=== PATIENT | female | born 1965 | race Caucasian/White ===

== ENCOUNTER → 2019-06-26 14:26 | Outpatient (CLI) | payer OTHER, SELFPAY ==
--- NOTE | 2019-06-26 14:33 | RAD_ITS ---
STUDY: X-RAY - LEFT HAND REASON FOR EXAM: Female, 53 years old. Pain TECHNIQUE: 3 view(s) of the hand. COMPARISON: None. FINDINGS: Normal radiocarpal articulation. Normal distal radioulnar joint. Normal visualized carpal bones. Normal carpal articulations Normal carpometacarpal articulation of the thumb. Normal second through fifth carpometacarpal joints. Normal metacarpi. Normal metacarpophalangeal joint of the thumb. Normal interphalangeal joint of the thumb. Normal proximal and distal phalanges of the thumb. Normal metacarpophalangeal joints of the second through fifth fingers. Normal proximal and distal interphalangeal joints of the second through fifth fingers. Normal phalanges of the second through fifth fingers. The soft tissue structures are unremarkable. RAD/Hand Min 3 Views IMPRESSION: Normal x-ray examination of the hand. Electronically Signed: Tavon Lorenz DO at 23:58 EDT Tel [phone], Service support ,
--- NOTE | 2019-06-26 14:39 | RAD_ITS ---
STUDY: X-RAY - RIGHT HAND REASON FOR EXAM: Female, 53 years old. Pain TECHNIQUE: 3 view(s) of the hand. COMPARISON: None. FINDINGS: Normal radiocarpal articulation. Normal distal radioulnar joint. Normal visualized carpal bones. Normal carpal articulations Normal carpometacarpal articulation of the thumb. Normal second through fifth carpometacarpal joints. Normal metacarpi. Normal metacarpophalangeal joint of the thumb. Normal interphalangeal joint of the thumb. Normal proximal and distal phalanges of the thumb. Normal metacarpophalangeal joints of the second through fifth fingers. Normal proximal and distal interphalangeal joints of the second through fifth fingers. Normal phalanges of the second through fifth fingers. The soft tissue structures are unremarkable. RAD/Hand Min 3 Views IMPRESSION: Normal x-ray examination of the hand. Electronically Signed: Tavon Lorenz DO at 0:00 EDT Tel [phone], Service support ,
== END ==
PROVIDERS: Family Provider Family Medicine; PCP Family Medicine; Referring Provider Family Medicine; Visit Provider Family Medicine
DX: M79.641 Pain in right hand (principal); M79.642 Pain in left hand
CPT/HCPCS: 73130

== ENCOUNTER → 2019-10-06 12:18 | Outpatient (CLI) | payer OTHER, SELFPAY ==
[2019-07-27 08:13] VITALS: BMI 27.4
--- NOTE | 2019-10-06 12:20 | US_ITS ---
STUDY: RENAL ULTRASOUND - COMPLETE REASON FOR EXAM: Female, 54 years old. Pyelonephritis TECHNIQUE: Ultrasound evaluation of the kidneys was performed with real-time and static xavier-scale imaging. COMPARISON: None. FINDINGS: RIGHT KIDNEY: Normal location of the right kidney, which is normal in size. The right kidney measures 11.8 x 3.9 x 3.9 cm. There is a normal cortex of the right kidney. The renal cortex measures 1.3 cm. There is no right renal mass or cyst. Punctate echogenicity within the right kidney. There is no right hydronephrosis. DISTAL RIGHT URETER: There is non-visualization of the distal right ureter. There is no demonstrated right ureterovesical junction calculus. There is no demonstrated right ureteral jet. LEFT KIDNEY: Normal location of the left kidney, which is normal in size. The left kidney measures 11.1 x 4.7 x 6.3 cm. There is a normal cortex of the left kidney. The renal cortex measures 1.4 cm. There is no left renal mass or cyst. There is punctate echogenicity within the left kidney. There is no left hydronephrosis. DISTAL LEFT URETER: There is non-visualization of the distal left ureter. There is no demonstrated left ureterovesical junction calculus. There is a visualized left ureteral jet. BLADDER: The there is a lobulated appearance of the prevoid bladder with wall thickening measuring up to 9.5 mm. US/Kidney and Bladder IMPRESSION: The bladder volume is approximately 73 mL with wall thickening suspicious for cystitis. There is no evidence of hydronephrosis. No evidence of hydronephrosis Suspect punctate stones bilateral kidneys. Electronically Signed: Geno Tee MD at 17:32 EST Tel , Service support ,
== END ==
PROVIDERS: Family Provider Family Medicine; PCP Family Medicine; Referring Provider Family Medicine; Visit Provider Family Medicine
DX: N10 Acute pyelonephritis (principal)
CPT/HCPCS: 76770

== ENCOUNTER → 2023-10-25 | Outpatient (CLI) | payer OTHER, SELFPAY ==
--- NOTE | 2023-10-25 15:14 | US_ITS ---
STUDY: Left ULTRASOUND REASON FOR EXAM: Female, 58 years old. LYMPH NODE ENLARGEMENT TECHNIQUE: Ultrasound evaluation of the left neck was performed with real-time and static dodge-scale imaging. Views of the right were obtained for comparison purposes COMPARISON: None. FINDINGS: Examination of the left neck demonstrates a 1.4 x 1.3 x 1.1 cm complex appearing nodule without internal blood flow at the site of the clinically palpable nodule. There is a similar-appearing but smaller nodule measuring 8 x 7 mm on the right. These may represent periparotid nodes or perhaps small bilateral. Intraparotid nodes or other nodules. CT recommended for further evaluation US/Head/Neck Soft Tissue IMPRESSION: Complex nodule in the left lateral neck of indeterminate etiology and smaller lesion on the right.. CT with contrast recommended for further evaluation. Electronically Signed: Quintin Dhillon MD at 17:31 EST ,
== END | disposition home or self-care (01) ==
LOC: US 15:12
PROVIDERS: PCP Family Medicine; Referring Provider Family Medicine; Visit Provider Family Medicine
DX: R59.9 Enlarged lymph nodes, unspecified (principal)
CPT/HCPCS: 76536

== ENCOUNTER → 2023-12-29 | Outpatient (CLI) | payer OTHER, SELFPAY ==
[2023-12-29 10:01] LABS: Bacteria 0 SEEN /hpf (None Seen); Mucous, Urine 0 SEEN /hpf (<or=2+); Red Blood Cells-Urine 0 SEEN /hpf (0-5)
[2023-12-29 10:37] LABS: Absolute Lymphocyte Count 2.06 X10^3/uL (0.83-4.51); Absolute Neutrophil Count 3.9 X10^3/uL (2.0-7.7); Basophil# 0.04 X10^3/uL; Basophil% 0.6 % (0-1); Color, Urine Yellow (Yellow); Glucose, Dipstick Normal (Normal); Hematocrit 47.7 % (37-47); Hemoglobin 15.4 g/dL (12.0-15.0); Ketone-Dipstick Negative (Negative); Leukocyte Esterase-Dipstick 25 /ul (Negative); Lymphocyte # 2.06 X10^3/ul (0.83-4.51); Lymphocyte % 30.7 % (19-41); Mean Corp Hgb Conc 32.3 g/dL (32-36); Mean Corpuscular Hgb 28.2 pg (27.0-32.0); Mean Corpuscular Volume 87.4 fL (81-99); Monocyte# 0.52 X10^3/uL; Monocyte% 7.7 % (0-10); NRBC Flagged by Analyzer 0 % (0-5); Neutrophil # 3.87 X10^3/uL (2.7-7.7); Neutrophil % 57.7 % (47-70); Nitrite-Dipstick Negative (Negative); Occult Blood-Urine Negative /ul (Negative); Platelet Count 230 K/mm3 (150-450); Protein-Dipstick Negative (Negative); RBC Distribution Width CV 13.9 % (11.6-14.6); RBC Distribution Width SD 44.6 fl (35.1-43.9); Red Blood Count 5.46 M/mm3 (4.2-5.4); Urine Bilirubin Dipstick Negative (Negative); Urine Clarity Clear (Clear); Urine Urobilinogen Normal (Normal); White Blood Count 6.7 K/mm3 (4.4-11.0)
[2023-12-29 10:44] LABS: Squamous Epithelial Cells - UA 0-5 SEEN /hpf (5-10); White Blood Cells 0-5 SEEN /hpf (0-5)
[2023-12-29 11:08] LABS: ALB/GLOB Ratio 1.1 RATIO (0.9-2.4); AST(SGOT) 17 U/L (15-37); Alanine Aminotransfer ALT/SGPT 28 U/L (13-56); Albumin, Serum 3.7 g/dL (3.2-5.0); Alkaline Phosphatase 89 U/L (45-117); Anion Gap 0 (5-15); BUN 18 mg/dL (7-18); BUN/Creat Ratio 22.9 RATIO (10-20); Calcium,Total 9.2 mg/dL (8.5-10.1); Chloride 109 mmol/L (98-107); Cholesterol 207 mg/dL (200); Creatinine, Serum 0.79 mg/dL (0.55-1.02); EST Glomerular Filtration Rate 80 mL/min (>60); Est Glom Filt Rate - Afr Amer 96 mL/min (>60); Globulin 3.4 g/dL (2.2-4.2); Glucose 111 mg/dL (74-106); High Density Lipoprotein 64 mg/dL; Potassium 4.1 mmol/L (3.5-5.1); Protein, Total 7.1 g/dL (6.4-8.2); Sodium Level 138 mmol/L (136-145); Thyroid Stim Hormone (TSH) 1.27 uIU/mL (0.358-3.74); Triglycerides 103 mg/dL; Very Low Density Lipoprotein 21 mg/dL (5-40)
== END | disposition home or self-care (01) ==
LOC: LAB 09:55
PROVIDERS: PCP Family Medicine; Visit Provider Family Medicine
DX: Z13.220 Encounter for screening for lipoid disorders (principal); Z13.29 Encounter for screening for other suspected endocrine disorder
CPT/HCPCS: 36415; 80053; 80061; 81001; 84443; 85025